=== PATIENT | female | born 1995 | race Caucasian/White ===

== ENCOUNTER 2016-06-18 10:10 | Emergency (ER) | payer OTHER ==
[2016-06-18 11:00] LABS: BASO % 0.1 % (0.0-1.0); EOS # 0.1 K/mm3 (0.0-0.50); EOS % 1.2 % (0.0-3.0); LARGE UNSTAINED CELL # 0.1 K/mm3 (0.0-0.4); LARGE UNSTAINED CELL % 1.1 % (0.0-4.0); LYMPH # 2.3 K/mm3 (1.5-6.5); LYMPH % 20.3 % (24.0-44.0); MEAN CORPUSCULAR HEMOGLOBIN 28.8 pg (27.0-33.0); MEAN CORPUSCULAR HGB CONC 34.1 g/dl (32.0-36.5); MEAN CORPUSCULAR VOLUME 84.5 fl (80.0-96.0); MONO # 0.4 K/mm3 (0.0-0.8); MONO % 3.3 % (0.0-5.0); NEUTROPHILS # 8.2 K/mm3 (1.8-7.7); NEUTROPHILS % 73.9 % (36.0-66.0); PLATELET COUNT, AUTOMATED 231 k/mm3 (150-450); RED CELL DISTRIBUTION WIDTH 12.7 % (11.5-14.5); WHITE BLOOD COUNT 11.1 K/mm3 (4.0-10.0)
[2016-06-18 11:39] LABS: ANION GAP 10 MEQ/L (8-16); BLOOD UREA NITROGEN 6 MG/DL (7-18); CALCIUM LEVEL 8.7 MG/DL (8.5-10.1); CARBON DIOXIDE LEVEL 23 MEQ/L (21-32); CHLORIDE LEVEL 106 MEQ/L (98-107); CREATININE FOR GFR 0.48 MG/DL (0.55-1.02); GLUCOSE, FASTING 73 MG/DL (70-105); HCG, SERUM QUANTITATIVE 21508 MIU/ML; POTASSIUM SERUM 3.8 MEQ/L (3.5-5.1); SODIUM LEVEL 139 MEQ/L (136-145)
--- NOTE | 2016-06-18 12:36 | REP ---
Obstetric sonography: History: Supervision of at 17 weeks, anatomy and viability. Findings: Scanning through the gravid uterus demonstrates a viable single intrauterine gestation in a variable lie. motion is observed and heart rate is recorded at 160 beats per minute. A posterior grade zero placenta is seen without evidence of previa. Amniotic fluid is subjectively normal. Closed cervical length is 3.0 cm, visualized trans vaginally. There is corpus luteum cyst in the maternal left ovary, approximately 1.1 cm in diameter. There has been appropriate interval growth. No extrauterine abnormality is observed. No anomaly is seen. anatomic survey is incomplete due to position and early gestational age. spine, three-vessel cord, abdominal wall cord insertion, diaphragm, ventricular outflow tract and four-chamber heart, lungs and face are less than optimally seen as a result. The following additional anatomic structures are identified and felt to be unremarkable today: cranium, choroid plexus, cavum, cerebellum and posterior fossa, left-sided stomach, kidneys and bladder, upper and lower extremities. Biometry chart: BPD 4.1 cm 18 weeks 4 days Head circumference 15.0 cm 18 weeks 0 days Abdominal circumference 12.4 cm 18 weeks 0 days Femur length 2.8 cm 18 weeks 4 days Humeral length 2.6 cm 18 weeks 0 days HC/AC ratio normal 1.21. Cephalic index normal 0.78. Estimated weight 231 grams, 0 pounds 8 ounces, 72nd percentile for 17 weeks 4 days. Impression: Viable single intrauterine gestation at 18 weeks 2 days by today's composite sonographic criteria. Expected gestational age estimate based on prior sonography 17 weeks 4 days. CHUCK by prior sonography is November 22, 2016. anatomic survey less than complete. Signed by Nba Guzman MD 06/18/2016 03:05 P
[2016-06-18] MEDS ORDERED: ACETAMINOPHEN 325 MG TAB As Ordered ONE (13:45)
[2016-06-18] MEDS ORDERED: NITROFURANTOIN (MACROBID) 100 MG CAP As Ordered ONE (13:52)
--- NOTE | 2016-06-18 14:23 | EDDOCDS ---
Physician Documentation [facility] Name: Chelsey Elizalde Age: 21 yrs Sex: Female : 1995 Arrival Date: 06/18/2016 Time: 10:10 Bed 11 Private MD: Evelia Villa Disposition: 06/18/16 14:01 Discharged to Home/Self Care. Impression: Urinary tract infection, site not specified, state. - Condition is Stable. - Discharge Instructions: Urinary Tract Infection, Second Trimester of , [id number]. - Prescriptions for Macrobid 100 mg Oral Capsule - take 100 milligrams by ORAL route every 12 hours for 7 days; 14 capsule. - Medication Reconciliation, Local Pharmacy Hours form. - Follow up: Hugo Mazariegos, OB; When: 4 - 5 days; Reason: Recheck today's complaints. - Problem is new. - Symptoms have improved. - Notes: You were seen in the ED for discomfort on urination. Bloodwork showed no clear cause of the symptoms. Urine tests was concerning for urinary tract infection. Ultrasound showed live inside the uterus. We have discussed the case with Dr. Mcdonnell of [employer] as well who has recommended you may return home to follow up in the office - please call today to make the appointment. You may take the antibiotics as written. No sexual intercourse, put nothing in the vagina until cleared by OB. Return to the ED for any worsening abdominal pain, fever, vomiting, inability to tolerate oral foods or liquids or any other concerns. Historical: - Allergies: no known allergies; - Home Meds: 1. Diclegis 10-10 mg oral TbEC 2 tabs as needed 2 times a day 2. Vitamin Oral tab 1 tab once daily - PMHx: PCOS; - PSHx: none; - Social history: Smoking status: Patient states former smoker of tobacco. No barriers to communication noted, The patient speaks fluent Slovak, Speaks appropriately for age, Smoking status: . - Family history: Not pertinent. - : The pt / caregiver states he / she is not on anticoagulants. Home medication list is obtained from the patient. - Exposure Risk Screening:: None identified. [employer]: 06/18 10:56 Verified kc3 Vital Signs: 10:24 BP 125 / 76; Pulse 102; Resp 18; Temp 98.2(O); Pulse Ox 98% on R/A; Weight 83.01 kg / rn1 183.01 lbs (R); Height 5 ft. 4 in. (162.56 cm) (R); Pain 5/10; 12:58 BP 107 / 56 (auto/); kc3 13:00 Pulse 90 MON; Pulse Ox 98% ; kc3 14:21 BP 107 / 56; Pulse 78; Resp 18; Temp 97.2(O); Pulse Ox 100% on R/A; kc3 10:24 Body Mass Index 31.41 (83.01 kg, 162.56 cm) rn1 MDM: 10:27 IV Saline Lock ordered. br1 10:27 Heart Tones ordered. br1 10:27 CBC with Diff Ordered. EDMS 10:27 BMP Ordered. EDMS 10:27 Hcg, Serum Quantitative Ordered. EDMS 10:28 Type & Screen Ordered. EDMS 10:31 US OBS SINGEL GEST Ordered. EDMS 10:57 Urinalysis Ordered. EDMS 10:57 Urine Culture Ordered. EDMS 11:48 TRANSVAGINAL US Ordered. EDMS 12:12 CBC with Diff Reviewed. br1 12:12 BMP Reviewed. br1 12:12 Hcg, Serum Quantitative Reviewed. br1 12:12 Type & Screen Reviewed. br1 13:39 Urinalysis Reviewed. br1 13:39 US OBS SINGEL GEST Reviewed. br1 13:40 Acetaminophen Tablet 650 mg PO once ordered. br1 13:46 Fluid Challenge ordered. br1 13:47 Nitrofurantoin 100 mg PO once ordered. br1 Administered Medications: 13:49 Drug: Acetaminophen 650 mg [acetaminophen 325 mg tablet (2 tabs)] Route: PO; kc3 13:55 Drug: Nitrofurantoin 100 mg [nitrofurantoin macrocrystal 50 mg capsule (2 caps)] Route: kc3 PO; Signatures: Dispatcher [employer] EDMS Nabeel Dewitt MD MD br1 Chata Kennedy RN RN kc3 The chart was reviewed and I authenticate all verbal orders and agree with the evaluation and treatment provided.Corrections: (The following items were deleted from the chart) 10:31 10:28 1ST TRIMESTER US+US ordered. EDMS EDMS MTDD
--- NOTE | 2016-06-18 14:23 | EDDOCDS ---
Nurse's Notes [facility] Name: Chelsey Elizalde Age: 21 yrs Sex: Female : 1995 Arrival Date: 06/18/2016 Time: 10:10 Bed 11 Private MD: Evelia Villa Diagnosis: Urinary tract infection, site not specified; state Presentation: 06/18 10:17 Presenting complaint: Patient states: urinary frequency and burning beginning yesterday kc3 with worsening nausea and abdominal distention today sent from [place]. Unable to find heart tones at clinic. Risk factors: the patient reports no vaginal bleeding. Adult Sepsis Screening: The patient does not have new or worsening altered mentation. Patient's respiratory rate is less than 22. Systolic blood pressure is greater than 100. Patient has a qSOFA score of 0- Negative Sepsis Screen. Suicide/Homicide risk assessment- the patient denies having any suicidal and/or homicidal ideations and does not present with any other emotional, behavioral or mental health complaints. Status: The patient is a dependent. Transition of care: patient was received from a primary care office; [place] [facility]. 10:17 Acuity: JIM Level 3 kc3 10:17 Method Of Arrival: Ambulance kc3 Triage Assessment: 10:22 General: Appears in no apparent distress, comfortable, Behavior is appropriate for age, kc3 cooperative. Pain: Location: abdomen. HIV screening NA for this visit Offered previously. The patient is triaged at the bedside. See Assessment in Nurses Notes section of ED record. Neurological: Level of Consciousness is awake, alert, obeys commands, Oriented to person, place, time. Respiratory: Airway is patent Respiratory effort is even, unlabored, Respiratory pattern is regular, symmetrical. GI: Abdomen is distended, Bowel sounds present X 4 quads. Abd is soft Abd is tender to palpation Reports nausea, vomiting. : Reports burning with urination urgency urinary frequency. Derm: Skin is pink, warm & dry. Musculoskeletal: Circulation, motion, and sensation intact. PHYS THER: 10:56 Verified kc3 Historical: - Allergies: no known allergies; - Home Meds: 1. Diclegis 10-10 mg oral TbEC 2 tabs as needed 2 times a day 2. Vitamin Oral tab 1 tab once daily - PMHx: PCOS; - PSHx: none; - Social history: Smoking status: Patient states former smoker of tobacco. No barriers to communication noted, The patient speaks fluent Croatian, Speaks appropriately for age, Smoking status: . - Family history: Not pertinent. - : The pt / caregiver states he / she is not on anticoagulants. Home medication list is obtained from the patient. - Exposure Risk Screening:: None identified. Screenin:56 Screening information is obtained from the patient. Fall risk: No risks identified. kc3 Assistance ADL's: requires no assistance with activities of daily living. Abuse/DV Screen: The patient / caregiver reports he/she is: not in a situation that causes fear, pain or injury. Nutritional screening: No deficits noted. Advance Directives: Currently, there is no health care proxy. home support is adequate. Assessment: 10:55 General: See triage assessment for initial assessment. . kc3 11:45 General: Appears in no apparent distress, comfortable, Behavior is appropriate for age, kc3 cooperative. Respiratory: Airway is patent Respiratory effort is even, unlabored. GI: Abdomen is distended, Bowel sounds present X 4 quads. Abd is soft Abd is tender to palpation. Derm: Skin is pink, warm & dry. 12:48 General: Appears in no apparent distress, comfortable, Behavior is appropriate for age, kc3 cooperative. Respiratory: Airway is patent Respiratory effort is even, unlabored. Derm: Skin is pink, warm & dry. 13:14 General: Appears in no apparent distress, comfortable, Behavior is appropriate for age, kc3 cooperative. Pain: Denies pain. Neurological: Level of Consciousness is awake, alert, obeys commands. Respiratory: Airway is patent Respiratory effort is even, unlabored. GI: Denies nausea. Derm: Skin is pink, warm & dry. 14:21 General: Appears in no apparent distress, comfortable, Behavior is appropriate for age, kc3 cooperative. Pain: Denies pain. Neurological: Level of Consciousness is awake, alert, obeys commands. Respiratory: Airway is patent Respiratory effort is even, unlabored. Derm: Skin is pink, warm & dry. Vital Signs: 10:24 BP 125 / 76; Pulse 102; Resp 18; Temp 98.2(O); Pulse Ox 98% on R/A; Weight 83.01 kg rn1 (R); Height 5 ft. 4 in. (162.56 cm) (R); Pain 5/10; 12:58 BP 107 / 56 (auto/); kc3 13:00 Pulse 90 MON; Pulse Ox 98% ; kc3 14:21 BP 107 / 56; Pulse 78; Resp 18; Temp 97.2(O); Pulse Ox 100% on R/A; kc3 10:24 Body Mass Index 31.41 (83.01 kg, 162.56 cm) rn1 Vitals: 10:56 Heart Tones 154BPM. kc3 10:56 Log In Time N/A - ambulance arrival. kc3 ED Course: 10:13 Patient visited by Addie Bowman. mm15 10:13 Evelia Villa is Private Physician. mm15 10:13 Chata Kennedy,KUMAR is Primary Nurse. kc3 10:13 Patient moved to Waiting mm15 10:13 Patient moved to 11 kc3 10:21 Triage Initiated kc3 10:56 The patient / caregiver is instructed regarding the plan of care and ED course. kc3 10:56 Inserted saline lock: 20 gauge in left antecubital area and blood collected. The kc3 patient tolerated the procedure well. Labs drawn. (by ED staff). Sent per order to lab. 10:58 Patient visited by Chata Kennedy RN. kc3 10:58 Type & Screen Sent. kc3 11:18 Nabeel Dewitt MD is Attending Physician. br1 11:18 Patient moved to Ultrasound hgl 11:59 Patient visited by Sully Griffin PCA. rs6 11:59 Urine Culture Sent. rs6 11:59 Urinalysis Sent. rs6 11:59 Urine collected. Clean catch specimen. Urine specimen sent to lab. rs6 12:04 Patient moved to 11 hgl 12:12 Patient visited by Nabeel Dewitt MD. br1 12:47 Patient visited by Chata Kennedy,KUMAR. kc3 12:49 Patient visited by Chata Kennedy RN. kc3 12:58 US OBS KARENA PRATT Returned. EDMS 13:31 Patient visited by Chata Kennedy,KUMAR. kc3 13:56 Diet: Patient given water. Tolerated well. kc3 13:57 Patient visited by Chata Kennedy RN. kc3 14:00 [place], OB is Referral Physician. br1 14:22 Discontinued IV lock intact, bleeding controlled, pressure dressing applied, No kc3 redness/swelling at site. No procedures done that require assistance. Administered Medications: 13:49 Drug: Acetaminophen 650 mg [acetaminophen 325 mg tablet (2 tabs)] Route: PO; kc3 13:55 Drug: Nitrofurantoin 100 mg [nitrofurantoin macrocrystal 50 mg capsule (2 caps)] Route: kc3 PO; Order Results: Lab Order: CBC with Diff; SPEC'M 06/18/16 10:53 Test: WHITE BLOOD COUNT; Value: 11.1; Range: 4.0-10.0; Abnormal: Above high normal; Units: K/mm3; Status: F Test: RED BLOOD COUNT; Value: 4.02; Range: 4.00-5.40; Units: M/mm3; Status: F Test: HEMOGLOBIN; Value: 11.6; Range: 12.0-16.0; Abnormal: Below low normal; Units: g/dl; Status: F Test: HEMATOCRIT; Value: 34.0; Range: 36.0-47.0; Abnormal: Below low normal; Units: %; Status: F Test: MEAN CORPUSCULAR VOLUME; Value: 84.5; Range: 80.0-96.0; Units: fl; Status: F Test: MEAN CORPUSCULAR HEMOGLOBIN; Value: 28.8; Range: 27.0-33.0; Units: pg; Status: F Test: MEAN CORPUSCULAR HGB CONC; Value: 34.1; Range: 32.0-36.5; Units: g/dl; Status: F Test: RED CELL DISTRIBUTION WIDTH; Value: 12.7; Range: 11.5-14.5; Units: %; Status: F Test: PLATELET COUNT, AUTOMATED; Value: 231; Range: 150-450; Units: k/mm3; Status: F Test: NEUTROPHILS %; Value: 73.9; Range: 36.0-66.0; Abnormal: Above high normal; Units: %; Status: F Test: LYMPH %; Value: 20.3; Range: 24.0-44.0; Abnormal: Below low normal; Units: %; Status: F Test: MONO %; Value: 3.3; Range: 0.0-5.0; Units: %; Status: F Test: EOS %; Value: 1.2; Range: 0.0-3.0; Units: %; Status: F Test: BASO %; Value: 0.1; Range: 0.0-1.0; Units: %; Status: F Test: LARGE UNSTAINED CELL %; Value: 1.1; Range: 0.0-4.0; Units: %; Status: F Test: NEUTROPHILS #; Value: 8.2; Range: 1.8-7.7; Abnormal: Above high normal; Units: K/mm3; Status: F Test: LYMPH #; Value: 2.3; Range: 1.5-6.5; Units: K/mm3; Status: F Test: MONO #; Value: 0.4; Range: 0.0-0.8; Units: K/mm3; Status: F Test: EOS #; Value: 0.1; Range: 0.0-0.50; Units: K/mm3; Status: F Test: BASO #; Value: 0.0; Range: 0.0-0.2; Units: K/mm3; Status: F Test: LARGE UNSTAINED CELL #; Value: 0.1; Range: 0.0-0.4; Units: K/mm3; Status: F Lab Order: [facility]; SPEC'M 06/18/16 10:53 Test: GLUCOSE, FASTING; Value: 73; Range: 70-105; Units: MG/DL; Status: F Test: BLOOD UREA NITROGEN; Value: 6; Range: 7-18; Abnormal: Below low normal; Units: MG/DL; Status: F Test: CREATININE FOR GFR; Value: 0.48; Range: 0.55-1.02; Abnormal: Below low normal; Units: MG/DL; Status: F Test: SODIUM LEVEL; Value: 139; Range: 136-145; Units: MEQ/L; Status: F Test: POTASSIUM SERUM; Value: 3.8; Range: 3.5-5.1; Units: MEQ/L; Status: F Test: CHLORIDE LEVEL; Value: 106; Range: 98-107; Units: MEQ/L; Status: F Test: CARBON DIOXIDE LEVEL; Value: 23; Range: 21-32; Units: MEQ/L; Status: F Test: ANION GAP; Value: 10; Range: 8-16; Units: MEQ/L; Status: F Test: CALCIUM LEVEL; Value: 8.7; Range: 8.5-10.1; Units: MG/DL; Status: F Lab Order: Hcg, Serum Quantitative; [facility] 06/18/16 10:53 Test: HCG, SERUM QUANTITATIVE; Value: [id number]; Units: MIU/ML; Status: F Test Note: ; GESTATIONAL AGE APPROXIMATE HCG RANGE (MIU/ML) 0.2-1 WEEK 5-50 1-2 WEEKS 50-500 2-3 WEEKS 100-5,000 3-4 WEEKS 500-10,000 4-5 WEEKS 1,000-50,000 5-6 WEEKS 10,000-100,000 6-8 WEEKS 15,000-200,000 2-3 MONTHS 10,000-100,000 NON FEMALES LESS THAN 3.0 Patient samples may contain human heterophilic antibodies that could react with immunoassays to give falsely elevated or depressed results. This assay has been designed to minimize interference from heterophilic antibodies. Elevated hCG levels have also been associated with trophoblastic disease and nontrophoblastic neoplasms. The possibility of having these diseases should be considered before a diagnosis of is made. This test is not intended for use as a surrogate marker for aiding in the diagnosis or monitoring the treatment of cancer patients. Siemens Harrod methodology. Lab Order: Type & Screen; [facility] 06/18/16 10:53 Test: BLOOD TYPE; Value: A POS; Status: F Test: AB SCREEN (INDIRECT SHI)VIS; Value: NEGATIVE; Status: F Lab Order: Urinalysis; [facility] 06/18/16 11:59 Test: APPEARANCE, URINE; Value: HAZY; Range: CLEAR; Status: F Test: COLOR, URINE; Value: YELLOW; Range: YELLOW; Status: F Test: PH,URINE; Value: 6.0; Range: 5.0-9.0; Units: UNITS; Status: F Test: SPECIFIC GRAVITY URINE AUTO; Value: 1.009; Range: 1.002-1.035; Status: F Test: PROTEIN, URINE AUTO; Value: NEGATIVE; Range: NEGATIVE; Units: mg/dL; Status: F Test: GLUCOSE, URINE (UA) AUTO; Value: NEGATIVE; Range: NEGATIVE; Units: mg/dL; Status: F Test: KETONE, URINE AUTO; Value: NEGATIVE; Range: NEGATIVE; Units: mg/dL; Status: F Test: UROBILINOGEN, URINE AUTO; Value: 0.2; Range: 0.0-2.0; Units: mg/dL; Status: F Test: BILIRUBIN, URINE AUTO; Value: NEGATIVE; Range: NEGATIVE; Status: F Test: NITRITE, URINE AUTO; Value: NEGATIVE; Range: NEGATIVE; Status: F Test: LEUKOCYTE ESTERASE, URINE AUTO; Value: 3+; Range: NEGATIVE; Abnormal: Above high normal; Status: F Test: BLOOD, URINE BLOOD; Value: 1+; Range: NEGATIVE; Abnormal: Above high normal; Status: F Test: WBC, URINE AUTO; Value: 71; Range: 0-3; Abnormal: Above high normal; Units: /HPF; Status: F Test: RBC, URINE AUTO; Value: 2; Range: 0-3; Units: /HPF; Status: F Test: BACTERIA, URINE AUTO; Value: 1+; Range: NEGATIVE; Abnormal: Above high normal; Status: F Test: SQUAMOUS EPITHELIAL CELL UR AU; Value: 3; Range: 0-6; Units: /HPF; Status: F Test: MUCUS, URINE; Value: SMALL; Range: NEGATIVE; Status: F Test: HYALINE CAST, URINE AUTO; Value: 0; Range: 0-1; Units: /LPF; Status: F Radiology Order: US OBS SINGEL GEST Test: US OBS SINGEL GEST REASON FOR EXAMINATION: abd pain preg eval for FHR; Obstetric sonography:; ; History: Supervision of at 17 weeks, anatomy and viability.; ; Findings: Scanning through the gravid uterus demonstrates a viable single; intrauterine gestation in a variable lie. motion is observed and; heart rate is recorded at 160 beats per minute. A posterior grade zero placenta; is seen without evidence of previa. Amniotic fluid is subjectively normal.; Closed cervical length is 3.0 cm, visualized transvaginally. There is corpus; luteum cyst in the maternal left ovary, approximately 1.1 cm in diameter. There; has been appropriate interval growth. No extrauterine abnormality is observed.; ; No anomaly is seen. anatomic survey is incomplete due to ; position and early gestational age. spine, three-vessel cord, abdominal; wall cord insertion, diaphragm, ventricular outflow tract and four-chamber heart,; lungs and face are less than optimally seen as a result. The following; additional anatomic structures are identified and felt to be unremarkable; today: cranium, choroid plexus, cavum, cerebellum and posterior fossa,; left-sided stomach, kidneys and bladder, upper and lower extremities.; ; Biometry chart:; BPD 4.1 cm 18 weeks 4 days; Head circumference 15.0 cm 18 weeks 0 days; Abdominal circumference 12.4 cm 18 weeks 0 days; Femur length 2.8 cm 18 weeks 4 days; Humeral length 2.6 cm 18 weeks 0 days; ; HC/AC ratio normal 1.21. Cephalic index normal 0.78. Estimated weight 231; grams, 0 pounds 8 ounces, 72nd percentile for 17 weeks 4 days.; ; Impression:; Viable single intrauterine gestation at 18 weeks 2 days by today's composite; sonographic criteria. Expected gestational age estimate based on prior; sonography 17 weeks 4 days. CHUCK by prior sonography is November 22, 2016. ; anatomic survey less than complete.; ; ; ; ; Unreviewed; Outcome: 13:15 Ultrasound Study completed. kc3 14:01 Discharge ordered by Provider. br1 14:22 Discharge Assessment: Patient awake, alert and oriented x 3. No cognitive and/or kc3 functional deficits noted. Patient verbalized understanding of disposition instructions. patient administered narcotics - no. The following High Risk Discharge criteria are identified: None. Discharged to home ambulatory. Condition: stable. Discharge instructions given to patient, Instructed on discharge instructions, follow up and referral plans. medication usage, Demonstrated understanding of instructions, medications, Pt was receptive of discharge instructions/ teaching. Prescriptions given X 1. Property :Personal belongings accompany Pt. 14:22 Patient left the ED. kc3 Signatures: Dispatcher [employer] EDMS Nabeel Dewitt MD MD br1 Navin Mason Marlynn mm15 Sully Griffin, FASHION DIRECTOR FASHION DIRECTOR rs6 Antonio De Luna rn1 Chata Kennedy RN RN kc3 MTDD
--- NOTE | 2016-06-20 15:23 | EDDOCDS ---
Physician Documentation [facility] Name: Chelsey Elizalde Age: 21 yrs Sex: Female : 1995 Arrival Date: 06/18/2016 Time: 10:10 Bed 11 Private MD: Evelia Villa Disposition: 06/18/16 14:01 Discharged to Home/Self Care. Impression: Urinary tract infection, site not specified, state. - Condition is Stable. - Discharge Instructions: Urinary Tract Infection, Second Trimester of , [id number]. - Prescriptions for Macrobid 100 mg Oral Capsule - take 100 milligrams by ORAL route every 12 hours for 7 days; 14 capsule. - Medication Reconciliation, Local Pharmacy Hours form. - Follow up: Hugo Mazariegos, OB; When: 4 - 5 days; Reason: Recheck today's complaints. - Problem is new. - Symptoms have improved. - Notes: You were seen in the ED for discomfort on urination. Bloodwork showed no clear cause of the symptoms. Urine tests was concerning for urinary tract infection. Ultrasound showed live inside the uterus. We have discussed the case with Dr. Mcdonnell of [employer] as well who has recommended you may return home to follow up in the office - please call today to make the appointment. You may take the antibiotics as written. No sexual intercourse, put nothing in the vagina until cleared by OB. Return to the ED for any worsening abdominal pain, fever, vomiting, inability to tolerate oral foods or liquids or any other concerns. Historical: - Allergies: no known allergies; - Home Meds: 1. Diclegis 10-10 mg oral TbEC 2 tabs as needed 2 times a day 2. Vitamin Oral tab 1 tab once daily - PMHx: PCOS; - PSHx: none; - Social history: Smoking status: Patient states former smoker of tobacco. No barriers to communication noted, The patient speaks fluent Martiniquais, Speaks appropriately for age, Smoking status: . - Family history: Not pertinent. - : The pt / caregiver states he / she is not on anticoagulants. Home medication list is obtained from the patient. - Exposure Risk Screening:: None identified. [employer]: 06/18 10:56 Verified kc3 Vital Signs: 10:24 BP 125 / 76; Pulse 102; Resp 18; Temp 98.2(O); Pulse Ox 98% on R/A; Weight 83.01 kg / rn1 183.01 lbs (R); Height 5 ft. 4 in. (162.56 cm) (R); Pain 5/10; 12:58 BP 107 / 56 (auto/); kc3 13:00 Pulse 90 MON; Pulse Ox 98% ; kc3 14:21 BP 107 / 56; Pulse 78; Resp 18; Temp 97.2(O); Pulse Ox 100% on R/A; kc3 10:24 Body Mass Index 31.41 (83.01 kg, 162.56 cm) rn1 MDM: 10:27 IV Saline Lock ordered. br1 10:27 Heart Tones ordered. br1 10:27 CBC with Diff Ordered. EDMS 10:27 BMP Ordered. EDMS 10:27 Hcg, Serum Quantitative Ordered. EDMS 10:28 Type & Screen Ordered. EDMS 10:31 US OBS SINGEL GEST Ordered. EDMS 10:57 Urinalysis Ordered. EDMS 10:57 Urine Culture Ordered. EDMS 11:48 TRANSVAGINAL US Ordered. EDMS 12:12 CBC with Diff Reviewed. br1 12:12 BMP Reviewed. br1 12:12 Hcg, Serum Quantitative Reviewed. br1 12:12 Type & Screen Reviewed. br1 13:39 Urinalysis Reviewed. br1 13:39 US OBS SINGEL GEST Reviewed. br1 13:40 Acetaminophen Tablet 650 mg PO once ordered. br1 13:46 Fluid Challenge ordered. br1 13:47 Nitrofurantoin 100 mg PO once ordered. br1 14:26 Financial registration complete. lg 15:18 [facility] [place] was scanned into [employer] and attached to record. lg 06/19 13:22 T-Sheet-- Draft Copy was scanned into [employer] and attached to record. gb 13:22 Radiology Report was scanned into [employer] and attached to record. gb 13:23 PCR was scanned into [employer] and attached to record. gb Administered Medications: 06/18 13:49 Drug: Acetaminophen 650 mg [acetaminophen 325 mg tablet (2 tabs)] Route: PO; kc3 13:55 Drug: Nitrofurantoin 100 mg [nitrofurantoin macrocrystal 50 mg capsule (2 caps)] Route: kc3 PO; Signatures: Dispatcher [employer] EDMS Naila Patel, Reg Reg gb Floresita Aguero, Reg Reg lg Nabeel Dewitt MD MD br1 Chata KennedyRN RN kc3 The chart was reviewed and I authenticate all verbal orders and agree with the evaluation and treatment provided.Corrections: (The following items were deleted from the chart) 10:31 10:28 1ST TRIMESTER US+US ordered. EDMS EDMS Attachments: 15:18 [facility] [place] Agreement lg 06/19 13:22 T-Sheet-- Draft Copy gb Chart Complete MTDD
--- NOTE | 2016-06-20 15:23 | EDDOCDS ---
Physician Documentation [facility] Name: Chelsey Elizalde Age: 21 yrs Sex: Female : 1995 Arrival Date: 06/18/2016 Time: 10:10 Bed 11 Private MD: Evelia Villa Disposition: 06/18/16 14:01 Discharged to Home/Self Care. Impression: Urinary tract infection, site not specified, state. - Condition is Stable. - Discharge Instructions: Urinary Tract Infection, Second Trimester of , [id number]. - Prescriptions for Macrobid 100 mg Oral Capsule - take 100 milligrams by ORAL route every 12 hours for 7 days; 14 capsule. - Medication Reconciliation, Local Pharmacy Hours form. - Follow up: Hugo Mazariegos, OB; When: 4 - 5 days; Reason: Recheck today's complaints. - Problem is new. - Symptoms have improved. - Notes: You were seen in the ED for discomfort on urination. Bloodwork showed no clear cause of the symptoms. Urine tests was concerning for urinary tract infection. Ultrasound showed live inside the uterus. We have discussed the case with Dr. Mcdonnell of [employer] as well who has recommended you may return home to follow up in the office - please call today to make the appointment. You may take the antibiotics as written. No sexual intercourse, put nothing in the vagina until cleared by OB. Return to the ED for any worsening abdominal pain, fever, vomiting, inability to tolerate oral foods or liquids or any other concerns. Historical: - Allergies: no known allergies; - Home Meds: 1. Diclegis 10-10 mg oral TbEC 2 tabs as needed 2 times a day 2. Vitamin Oral tab 1 tab once daily - PMHx: PCOS; - PSHx: none; - Social history: Smoking status: Patient states former smoker of tobacco. No barriers to communication noted, The patient speaks fluent Uruguayan, Speaks appropriately for age, Smoking status: . - Family history: Not pertinent. - : The pt / caregiver states he / she is not on anticoagulants. Home medication list is obtained from the patient. - Exposure Risk Screening:: None identified. [employer]: 06/18 10:56 Verified kc3 Vital Signs: 10:24 BP 125 / 76; Pulse 102; Resp 18; Temp 98.2(O); Pulse Ox 98% on R/A; Weight 83.01 kg / rn1 183.01 lbs (R); Height 5 ft. 4 in. (162.56 cm) (R); Pain 5/10; 12:58 BP 107 / 56 (auto/); kc3 13:00 Pulse 90 MON; Pulse Ox 98% ; kc3 14:21 BP 107 / 56; Pulse 78; Resp 18; Temp 97.2(O); Pulse Ox 100% on R/A; kc3 10:24 Body Mass Index 31.41 (83.01 kg, 162.56 cm) rn1 MDM: 10:27 IV Saline Lock ordered. br1 10:27 Heart Tones ordered. br1 10:27 CBC with Diff Ordered. EDMS 10:27 BMP Ordered. EDMS 10:27 Hcg, Serum Quantitative Ordered. EDMS 10:28 Type & Screen Ordered. EDMS 10:31 US OBS SINGEL GEST Ordered. EDMS 10:57 Urinalysis Ordered. EDMS 10:57 Urine Culture Ordered. EDMS 11:48 TRANSVAGINAL US Ordered. EDMS 12:12 CBC with Diff Reviewed. br1 12:12 BMP Reviewed. br1 12:12 Hcg, Serum Quantitative Reviewed. br1 12:12 Type & Screen Reviewed. br1 13:39 Urinalysis Reviewed. br1 13:39 US OBS SINGEL GEST Reviewed. br1 13:40 Acetaminophen Tablet 650 mg PO once ordered. br1 13:46 Fluid Challenge ordered. br1 13:47 Nitrofurantoin 100 mg PO once ordered. br1 14:26 Financial registration complete. lg 15:18 [facility] Payment Agreement was scanned into [employer] and attached to record. lg 06/19 13:22 T-Sheet-- Draft Copy was scanned into [employer] and attached to record. gb 13:22 Radiology Report was scanned into [employer] and attached to record. gb 13:23 PCR was scanned into [employer] and attached to record. gb Administered Medications: 06/18 13:49 Drug: Acetaminophen 650 mg [acetaminophen 325 mg tablet (2 tabs)] Route: PO; kc3 13:55 Drug: Nitrofurantoin 100 mg [nitrofurantoin macrocrystal 50 mg capsule (2 caps)] Route: kc3 PO; Signatures: Dispatcher [employer] EDMS Naila Patel, Reg Reg gb Floresita Aguero, Reg Reg lg Nabeel Dewitt MD MD br1 Chata KennedyRN RN kc3 The chart was reviewed and I authenticate all verbal orders and agree with the evaluation and treatment provided.Corrections: (The following items were deleted from the chart) 10:31 10:28 1ST TRIMESTER US+US ordered. EDMS EDMS Attachments: 15:18 [facility] Payment Agreement lg 06/19 13:22 T-Sheet-- Draft Copy gb Chart Complete MTDD
--- NOTE | 2016-06-20 15:23 | EDDOCDS ---
Nurse's Notes [facility] Name: Chelsey Elizalde Age: 21 yrs Sex: Female : 1995 Arrival Date: 06/18/2016 Time: 10:10 Bed 11 Private MD: Evelia Villa Diagnosis: Urinary tract infection, site not specified; state Presentation: 06/18 10:17 Presenting complaint: Patient states: urinary frequency and burning beginning yesterday kc3 with worsening nausea and abdominal distention today sent from [facility]. Unable to find heart tones at clinic. Risk factors: the patient reports no vaginal bleeding. Adult Sepsis Screening: The patient does not have new or worsening altered mentation. Patient's respiratory rate is less than 22. Systolic blood pressure is greater than 100. Patient has a qSOFA score of 0- Negative Sepsis Screen. Suicide/Homicide risk assessment- the patient denies having any suicidal and/or homicidal ideations and does not present with any other emotional, behavioral or mental health complaints. Status: The patient is a dependent. Transition of care: patient was received from a primary care office; [facility] Director Of Cardiology Service Line clinic. 10:17 Acuity: JIM Level 3 kc3 10:17 Method Of Arrival: Ambulance kc3 Triage Assessment: 10:22 General: Appears in no apparent distress, comfortable, Behavior is appropriate for age, kc3 cooperative. Pain: Location: abdomen. HIV screening NA for this visit Offered previously. The patient is triaged at the bedside. See Assessment in Nurses Notes section of ED record. Neurological: Level of Consciousness is awake, alert, obeys commands, Oriented to person, place, time. Respiratory: Airway is patent Respiratory effort is even, unlabored, Respiratory pattern is regular, symmetrical. GI: Abdomen is distended, Bowel sounds present X 4 quads. Abd is soft Abd is tender to palpation Reports nausea, vomiting. : Reports burning with urination urgency urinary frequency. Derm: Skin is pink, warm & dry. Musculoskeletal: Circulation, motion, and sensation intact. CERTIFIED INDUSTRIAL HYGIENIST: 10:56 Verified kc3 Historical: - Allergies: no known allergies; - Home Meds: 1. Diclegis 10-10 mg oral TbEC 2 tabs as needed 2 times a day 2. Vitamin Oral tab 1 tab once daily - PMHx: PCOS; - PSHx: none; - Social history: Smoking status: Patient states former smoker of tobacco. No barriers to communication noted, The patient speaks fluent Luxembourgish, Speaks appropriately for age, Smoking status: . - Family history: Not pertinent. - : The pt / caregiver states he / she is not on anticoagulants. Home medication list is obtained from the patient. - Exposure Risk Screening:: None identified. Screenin:56 Screening information is obtained from the patient. Fall risk: No risks identified. kc3 Assistance ADL's: requires no assistance with activities of daily living. Abuse/DV Screen: The patient / caregiver reports he/she is: not in a situation that causes fear, pain or injury. Nutritional screening: No deficits noted. Advance Directives: Currently, there is no health care proxy. home support is adequate. Assessment: 10:55 General: See triage assessment for initial assessment. . kc3 11:45 General: Appears in no apparent distress, comfortable, Behavior is appropriate for age, kc3 cooperative. Respiratory: Airway is patent Respiratory effort is even, unlabored. GI: Abdomen is distended, Bowel sounds present X 4 quads. Abd is soft Abd is tender to palpation. Derm: Skin is pink, warm & dry. 12:48 General: Appears in no apparent distress, comfortable, Behavior is appropriate for age, kc3 cooperative. Respiratory: Airway is patent Respiratory effort is even, unlabored. Derm: Skin is pink, warm & dry. 13:14 General: Appears in no apparent distress, comfortable, Behavior is appropriate for age, kc3 cooperative. Pain: Denies pain. Neurological: Level of Consciousness is awake, alert, obeys commands. Respiratory: Airway is patent Respiratory effort is even, unlabored. GI: Denies nausea. Derm: Skin is pink, warm & dry. 14:21 General: Appears in no apparent distress, comfortable, Behavior is appropriate for age, kc3 cooperative. Pain: Denies pain. Neurological: Level of Consciousness is awake, alert, obeys commands. Respiratory: Airway is patent Respiratory effort is even, unlabored. Derm: Skin is pink, warm & dry. Vital Signs: 10:24 BP 125 / 76; Pulse 102; Resp 18; Temp 98.2(O); Pulse Ox 98% on R/A; Weight 83.01 kg rn1 (R); Height 5 ft. 4 in. (162.56 cm) (R); Pain 5/10; 12:58 BP 107 / 56 (auto/); kc3 13:00 Pulse 90 MON; Pulse Ox 98% ; kc3 14:21 BP 107 / 56; Pulse 78; Resp 18; Temp 97.2(O); Pulse Ox 100% on R/A; kc3 10:24 Body Mass Index 31.41 (83.01 kg, 162.56 cm) rn1 Vitals: 10:56 Heart Tones 154BPM. kc3 10:56 Log In Time N/A - ambulance arrival. kc3 ED Course: 10:13 Patient visited by Addie Bowman. mm15 10:13 Evelia Villa is Private Physician. mm15 10:13 Chata Kennedy,KUMAR is Primary Nurse. kc3 10:13 Patient moved to Waiting mm15 10:13 Patient moved to 11 kc3 10:21 Triage Initiated kc3 10:56 The patient / caregiver is instructed regarding the plan of care and ED course. kc3 10:56 Inserted saline lock: 20 gauge in left antecubital area and blood collected. The kc3 patient tolerated the procedure well. Labs drawn. (by ED staff). Sent per order to lab. 10:58 Patient visited by Chata Kennedy RN. kc3 10:58 Type & Screen Sent. kc3 11:18 Nabeel Dewitt MD is Attending Physician. br1 11:18 Patient moved to Ultrasound hgl 11:59 Patient visited by Sully Griffin PCA. rs6 11:59 Urine Culture Sent. rs6 11:59 Urinalysis Sent. rs6 11:59 Urine collected. Clean catch specimen. Urine specimen sent to lab. rs6 12:04 Patient moved to 11 hgl 12:12 Patient visited by Nabeel Dewitt MD. br1 12:47 Patient visited by Chata Kennedy,KUMAR. kc3 12:49 Patient visited by Chata Kennedy RN. kc3 12:58 US OBS KARENA PRATT Returned. EDMS 13:31 Patient visited by Chata Kennedy,KUMAR. kc3 13:56 Diet: Patient given water. Tolerated well. kc3 13:57 Patient visited by Chata Kennedy RN. kc3 14:00 [place], OB is Referral Physician. br1 14:22 Discontinued IV lock intact, bleeding controlled, pressure dressing applied, No kc3 redness/swelling at site. No procedures done that require assistance. 15:18 [facility] [place] was scanned into [employer] and attached to record. lg 15:32 US OBS KARENA PRATT Returned. EDMS 06/19 13:22 T-Sheet-- Draft Copy was scanned into [employer] and attached to record. gb 13:22 Radiology Report was scanned into [employer] and attached to record. gb 13:23 PCR was scanned into [employer] and attached to record. gb 06/20 09:20 Patient visited by Lonnie Abraham RN. bcj Administered Medications: 06/18 13:49 Drug: Acetaminophen 650 mg [acetaminophen 325 mg tablet (2 tabs)] Route: PO; kc3 13:55 Drug: Nitrofurantoin 100 mg [nitrofurantoin macrocrystal 50 mg capsule (2 caps)] Route: kc3 PO; Order Results: Lab Order: CBC with Diff; SPEC'M 06/18/16 10:53 Test: WHITE BLOOD COUNT; Value: 11.1; Range: 4.0-10.0; Abnormal: Above high normal; Units: K/mm3; Status: F Test: RED BLOOD COUNT; Value: 4.02; Range: 4.00-5.40; Units: M/mm3; Status: F Test: HEMOGLOBIN; Value: 11.6; Range: 12.0-16.0; Abnormal: Below low normal; Units: g/dl; Status: F Test: HEMATOCRIT; Value: 34.0; Range: 36.0-47.0; Abnormal: Below low normal; Units: %; Status: F Test: MEAN CORPUSCULAR VOLUME; Value: 84.5; Range: 80.0-96.0; Units: fl; Status: F Test: MEAN CORPUSCULAR HEMOGLOBIN; Value: 28.8; Range: 27.0-33.0; Units: pg; Status: F Test: MEAN CORPUSCULAR HGB CONC; Value: 34.1; Range: 32.0-36.5; Units: g/dl; Status: F Test: RED CELL DISTRIBUTION WIDTH; Value: 12.7; Range: 11.5-14.5; Units: %; Status: F Test: PLATELET COUNT, AUTOMATED; Value: 231; Range: 150-450; Units: k/mm3; Status: F Test: NEUTROPHILS %; Value: 73.9; Range: 36.0-66.0; Abnormal: Above high normal; Units: %; Status: F Test: LYMPH %; Value: 20.3; Range: 24.0-44.0; Abnormal: Below low normal; Units: %; Status: F Test: MONO %; Value: 3.3; Range: 0.0-5.0; Units: %; Status: F Test: EOS %; Value: 1.2; Range: 0.0-3.0; Units: %; Status: F Test: BASO %; Value: 0.1; Range: 0.0-1.0; Units: %; Status: F Test: LARGE UNSTAINED CELL %; Value: 1.1; Range: 0.0-4.0; Units: %; Status: F Test: NEUTROPHILS #; Value: 8.2; Range: 1.8-7.7; Abnormal: Above high normal; Units: K/mm3; Status: F Test: LYMPH #; Value: 2.3; Range: 1.5-6.5; Units: K/mm3; Status: F Test: MONO #; Value: 0.4; Range: 0.0-0.8; Units: K/mm3; Status: F Test: EOS #; Value: 0.1; Range: 0.0-0.50; Units: K/mm3; Status: F Test: BASO #; Value: 0.0; Range: 0.0-0.2; Units: K/mm3; Status: F Test: LARGE UNSTAINED CELL #; Value: 0.1; Range: 0.0-0.4; Units: K/mm3; Status: F Lab Order: [facility]; SPEC'M 06/18/16 10:53 Test: GLUCOSE, FASTING; Value: 73; Range: 70-105; Units: MG/DL; Status: F Test: BLOOD UREA NITROGEN; Value: 6; Range: 7-18; Abnormal: Below low normal; Units: MG/DL; Status: F Test: CREATININE FOR GFR; Value: 0.48; Range: 0.55-1.02; Abnormal: Below low normal; Units: MG/DL; Status: F Test: SODIUM LEVEL; Value: 139; Range: 136-145; Units: MEQ/L; Status: F Test: POTASSIUM SERUM; Value: 3.8; Range: 3.5-5.1; Units: MEQ/L; Status: F Test: CHLORIDE LEVEL; Value: 106; Range: 98-107; Units: MEQ/L; Status: F Test: CARBON DIOXIDE LEVEL; Value: 23; Range: 21-32; Units: MEQ/L; Status: F Test: ANION GAP; Value: 10; Range: 8-16; Units: MEQ/L; Status: F Test: CALCIUM LEVEL; Value: 8.7; Range: 8.5-10.1; Units: MG/DL; Status: F Lab Order: Hcg, Serum Quantitative; 06/18/16 10:53 Test: HCG, SERUM QUANTITATIVE; Value: [id number]; Units: MIU/ML; Status: F Test Note: ; GESTATIONAL AGE APPROXIMATE HCG RANGE (MIU/ML) 0.2-1 WEEK 5-50 1-2 WEEKS 50-500 2-3 WEEKS 100-5,000 3-4 WEEKS 500-10,000 4-5 WEEKS 1,000-50,000 5-6 WEEKS 10,000-100,000 6-8 WEEKS 15,000-200,000 2-3 MONTHS 10,000-100,000 NON FEMALES LESS THAN 3.0 Patient samples may contain human heterophilic antibodies that could react with immunoassays to give falsely elevated or depressed results. This assay has been designed to minimize interference from heterophilic antibodies. Elevated hCG levels have also been associated with trophoblastic disease and nontrophoblastic neoplasms. The possibility of having these diseases should be considered before a diagnosis of is made. This test is not intended for use as a surrogate marker for aiding in the diagnosis or monitoring the treatment of cancer patients. Siemens Qewz methodology. Lab Order: Type & Screen; 06/18/16 10:53 Test: BLOOD TYPE; Value: A POS; Status: F Test: AB SCREEN (INDIRECT SHI)VIS; Value: NEGATIVE; Status: F Lab Order: Urinalysis; 06/18/16 11:59 Test: APPEARANCE, URINE; Value: HAZY; Range: CLEAR; Status: F Test: COLOR, URINE; Value: YELLOW; Range: YELLOW; Status: F Test: PH,URINE; Value: 6.0; Range: 5.0-9.0; Units: UNITS; Status: F Test: SPECIFIC GRAVITY URINE AUTO; Value: 1.009; Range: 1.002-1.035; Status: F Test: PROTEIN, URINE AUTO; Value: NEGATIVE; Range: NEGATIVE; Units: mg/dL; Status: F Test: GLUCOSE, URINE (UA) AUTO; Value: NEGATIVE; Range: NEGATIVE; Units: mg/dL; Status: F Test: KETONE, URINE AUTO; Value: NEGATIVE; Range: NEGATIVE; Units: mg/dL; Status: F Test: UROBILINOGEN, URINE AUTO; Value: 0.2; Range: 0.0-2.0; Units: mg/dL; Status: F Test: BILIRUBIN, URINE AUTO; Value: NEGATIVE; Range: NEGATIVE; Status: F Test: NITRITE, URINE AUTO; Value: NEGATIVE; Range: NEGATIVE; Status: F Test: LEUKOCYTE ESTERASE, URINE AUTO; Value: 3+; Range: NEGATIVE; Abnormal: Above high normal; Status: F Test: BLOOD, URINE BLOOD; Value: 1+; Range: NEGATIVE; Abnormal: Above high normal; Status: F Test: WBC, URINE AUTO; Value: 71; Range: 0-3; Abnormal: Above high normal; Units: /HPF; Status: F Test: RBC, URINE AUTO; Value: 2; Range: 0-3; Units: /HPF; Status: F Test: BACTERIA, URINE AUTO; Value: 1+; Range: NEGATIVE; Abnormal: Above high normal; Status: F Test: SQUAMOUS EPITHELIAL CELL UR AU; Value: 3; Range: 0-6; Units: /HPF; Status: F Test: MUCUS, URINE; Value: SMALL; Range: NEGATIVE; Status: F Test: HYALINE CAST, URINE AUTO; Value: 0; Range: 0-1; Units: /LPF; Status: F Lab Order: Urine Culture; SPEC'M 06/18/16 11:59 Test: URINE CULTURE; Value: <EXTERNAL COMMENT eCWMed> FULL REPORT IN LAB NOTES (eCW and Medent).; Status: F Test: URINE CULTURE; Value: ORGANISM 1: ESCHERICHIA COLI; Status: F Test: URINE CULTURE; Value: ESCHERICHIA COLI; Status: F Test: URINE CULTURE; Value: COLONY COUNT CFU/ml >100,000; Status: F Test: URINE CULTURE; Value: GRAM NEG SENSI - VITEK 80; Status: F Test: URINE CULTURE; Value: Method: VIT2; Status: F Test: URINE CULTURE; Value: EXTD BRD SPCTRM BETA LACTAMASE -; Status: F Test: URINE CULTURE; Value: TRIMETHOPRIM/SULFAMETHOXAZOLE <=20 S; Status: F Test: URINE CULTURE; Value: AMPICILLIN >=32 R; Status: F Test: URINE CULTURE; Value: GENTAMICIN <=1 S; Status: F Test: URINE CULTURE; Value: NITROFURANTOIN <=16 S; Status: F Test: URINE CULTURE; Value: CEFAZOLIN <=4 S; Status: F Test: URINE CULTURE; Value: LEVOFLOXACIN <=0.12 S; Status: F Test: URINE CULTURE; Value: TOBRAMYCIN <=1 S; Status: F Test: URINE CULTURE; Value: CEFTRIAXONE <=1 S; Status: F Test: URINE CULTURE; Value: CEFTAZIDIME <=1 S; Status: F Test: URINE CULTURE; Value: AMPICILLIN/SULBACTAM >=32 R; Status: F Test: URINE CULTURE; Value: PIPERACILLIN/TAZOBACTAM <=4 S; Status: F Test: URINE CULTURE; Value: AZTREONAM <=1 S; Status: F Test: URINE CULTURE; Value: ERTAPENEM <=0.5 S; Status: F Test: URINE CULTURE; Value: MEROPENEM <=0.25 S; Status: F Test: URINE CULTURE; Value: TIGECYCLINE <=0.5 S; Status: F Test: URINE CULTURE; Value: CEFEPIME <=1 S; Status: F Radiology Order: US OBS SINGEL GEST Test: US OBS SINGEL GEST REASON FOR EXAMINATION: abd pain preg eval for FHR; Obstetric sonography:; ; History: Supervision of at 17 weeks, anatomy and viability.; ; Findings: Scanning through the gravid uterus demonstrates a viable single; intrauterine gestation in a variable lie. motion is observed and; heart rate is recorded at 160 beats per minute. A posterior grade zero placenta; is seen without evidence of previa. Amniotic fluid is subjectively normal.; Closed cervical length is 3.0 cm, visualized trans vaginally. There is corpus; luteum cyst in the maternal left ovary, approximately 1.1 cm in diameter. There; has been appropriate interval growth. No extrauterine abnormality is observed.; ; No anomaly is seen. anatomic survey is incomplete due to ; position and early gestational age. spine, three-vessel cord, abdominal; wall cord insertion, diaphragm, ventricular outflow tract and four-chamber heart,; lungs and face are less than optimally seen as a result. The following; additional anatomic structures are identified and felt to be unremarkable; today: cranium, choroid plexus, cavum, cerebellum and posterior fossa,; left-sided stomach, kidneys and bladder, upper and lower extremities.; ; Biometry chart:; ; BPD 4.1 cm 18 weeks 4 days; ; Head circumference 15.0 cm 18 weeks 0 days; ; Abdominal circumference 12.4 cm 18 weeks 0 days; ; Femur length 2.8 cm 18 weeks 4 days; ; Humeral length 2.6 cm 18 weeks 0 days; ; HC/AC ratio normal 1.21.; ; Cephalic index normal 0.78.; ; Estimated weight 231 grams, 0 pounds 8 ounces, 72nd percentile for 17 weeks; 4 days.; ; Impression:; ; Viable single intrauterine gestation at 18 weeks 2 days by today's composite; sonographic criteria. Expected gestational age estimate based on prior; sonography 17 weeks 4 days. CHUCK by prior sonography is November 22, 2016. ; anatomic survey less than complete.; ; ; Signed by; Nba Guzman MD 06/18/2016 03:05 P; Outcome: 13:15 Ultrasound Study completed. kc3 14:01 Discharge ordered by Provider. br1 14:22 Discharge Assessment: Patient awake, alert and oriented x 3. No cognitive and/or kc3 functional deficits noted. Patient verbalized understanding of disposition instructions. patient administered narcotics - no. The following High Risk Discharge criteria are identified: None. Discharged to home ambulatory. Condition: stable. Discharge instructions given to patient, Instructed on discharge instructions, follow up and referral plans. medication usage, Demonstrated understanding of instructions, medications, Pt was receptive of discharge instructions/ teaching. Prescriptions given X 1. Property :Personal belongings accompany Pt. 14:22 Patient left the ED. kc3 06/20 09:19 culture results reviewed treated appropriately:. [facility] Signatures: Dispatcher [employer] Lonnie Root, RN RN bcj Naila Patel, Reg Reg gb Floresita Aguero, Reg Reg lg Nabeel Dewitt MD MD br1 Isabella, Navin hgl Addie Bowman mm15 Griffin, Sully, NURSING EDUCATOR NURSING EDUCATOR rs6 Antonio De Luna rn1 Chata Kennedy RN RN kc3 Chart Complete MTDD
== END 2016-06-18 14:22 | disposition home or self-care (01) ==
LOC: M ED 10:10
DX: O23.42 Unspecified infection of urinary tract in pregnancy, second trimester (principal); O99.282 Endocrine, nutritional and metabolic diseases complicating pregnancy, second trimester; E28.2 Polycystic ovarian syndrome; Z3A.17 17 weeks gestation of pregnancy; Z87.891 Personal history of nicotine dependence

== ENCOUNTER 2016-11-02 11:00 | Outpatient (CLI) | payer OTHER ==
[~2016-11-02] VITALS: Ht 162.6 cm; Wt 92.0 kg
[2016-11-02 11:10] VITALS: BP 141/94
[2016-11-02] MEDS ORDERED: DICL10TA PO (11:28)
[2016-11-02] MEDS ORDERED: FERR325T3 PO (11:28)
[2016-11-02] MEDS ORDERED: COLA100C3 PO (11:28)
[2016-11-02] MEDS ORDERED: VITACRY3 PO (11:28)
[2016-11-02 11:33] VITALS: BP 148/86
[2016-11-02 11:48] VITALS: BP 123/73
--- NOTE | 2016-11-02 12:10 | IPNPDOC ---
Text Note Date of Service The patient was seen on 11/02/16. NOTE [id number] @ 1200 21 yo presents to L&D Triage ambulatory with spouse @ 37+1 by LMP (CHUCK- [id number]) with c/o LOF since 1900 yesterday. States she has been having to change her panties every time she goes to the bathroom b/c they are wet. Reports fluid as clear and small amounts. Denies DFM, CTXs and VB. Spouse is here with her. S: LOF-small amount of clear fluid without odor. LOF started at 1900 last evening, no pain or CTXs. Had sex last night after she noted the first small amount of clear fluid. Denies SORENSEN, visual changes, n/v and RUQ pain. O: BP- mild range x 2 on arrival(141/94, 148/86), . Once she had been on the monitor and exam was complete her BP was 123/73, states she was very nervous about being in labor. Afebrile. FHR- 145, moderate variability, + accels, no decles CTX- none, resting tone palpated as soft Negative pooling Negative valsalva Negative ferning DEMETRIS- 14.1, vtx SVE- 1/thick/-3, vtx/soft/posterior Pre-e labs sent PCR - 0.17 A: 21 yo @ 37+1 intact, with reactive and reassuring NST. Mild elevation of BPs with labs sent P: Discharge to home with strict return precautions for LOF, DFM, CTX, VB, SORENSEN, n /v, visual changes and RUQ pain. Sent home with 24 hour urine and instructions to drop urine off at [facility] tomorrow and go to [facility] for BP check. VS,Fishbone, I+O VS, Fishbone, I+O Vital Signs Date Time Temp Pulse Resp B/P (MAP) Pulse Ox O2 Delivery O2 Flow Rate FiO2 11/02/16 11:10 97.8 130 20 141/94 (110) Room Air LACEY SETHI CNM Nov 02, 2016 12:10
[2016-11-02 13:14] LABS: ALBUMIN 2.8 GM/DL (3.2-5.2); ALBUMIN/GLOBULIN RATIO 0.74 (1.00-1.93); ALKALINE PHOSPHATASE 103 U/L (45-117); ALT/SGPT 19 U/L (12-78); ANION GAP 7 MEQ/L (8-16); AST/SGOT 11 U/L (15-37); BILIRUBIN,TOTAL 0.2 MG/DL (0.2-1.0); BLOOD UREA NITROGEN 9 MG/DL (7-18); CALCIUM LEVEL 8.7 MG/DL (8.5-10.1); CARBON DIOXIDE LEVEL 25 MEQ/L (21-32); CHLORIDE LEVEL 108 MEQ/L (98-107); CREATININE FOR GFR 0.49 MG/DL (0.55-1.02); GLUCOSE, FASTING 87 MG/DL (70-105); POTASSIUM SERUM 3.8 MEQ/L (3.5-5.1); SODIUM LEVEL 140 MEQ/L (136-145); TOTAL PROTEIN 6.6 GM/DL (6.4-8.2); URIC ACID 3.7 MG/DL (2.6-6.0)
== END 2016-11-02 13:33 | disposition home or self-care (01) ==
LOC: M LDO 11:00
PROVIDERS: ATTEND Midwife
DX: O26.893 Other specified pregnancy related conditions, third trimester (principal); Z3A.37 37 weeks gestation of pregnancy

== ENCOUNTER → 2016-11-03 | Outpatient (REF) | payer OTHER ==
[~2016-11-03] MED LIST: COLA100C5 PO; DIBU10OI TOP; DICL10TA PO; FERR325T3 PO; MOTR200T44 PO; PREN1TAB11 PO; TYLE325T5 PO; VITA100067 PO; VITACRY3 PO
== END ==
LOC: M LAB REF 15:46
PROVIDERS: ATTEND Midwife
DX: Z13.9 Encounter for screening, unspecified (principal)

== ENCOUNTER 2016-12-01 05:45 | Inpatient (IN) | payer OTHER ==
[2016-12-01] VITALS (28 sets, daily range): BP systolic 96–139; BP diastolic 55–83
[~2016-12-01] VITALS: Ht 162.6 cm; Wt 93.0 kg
[~2016-12-01 05:45] MED LIST changes: -DIBU10OI TOP; -MOTR200T44 PO; -PREN1TAB11 PO; -TYLE325T5 PO; -VITA100067 PO
[2016-12-01] MEDS ORDERED: VITA100067 PO (06:52)
[2016-12-01] MEDS ORDERED: LR 1,000 ML IV SCH (06:54)
[2016-12-01] MEDS ORDERED: OXYTOCIN DRIP 30 UNITS in APPROPRIATE DILUENT 1 EA IV SCH ×5 (07:00→20:02)
--- NOTE | 2016-12-01 09:49 | IPNPDOC ---
Text Note Date of Service The patient was seen on 12/01/16. NOTE SBAR from Dr Barr at ~ 0800. 41+2, chart reviewed. I just finished a on a different pt. Wants to be rechecked prior to Pitocin start. NST Cat 2 with some random variables and a few intermittent late decels, irreg ctx's that she is not feeling much. Cx 3-4/90/-1/vtx well applied Favorable cx, will start pitocin soon as long as NST allows per SOP. Sessions VS,Harleen, I+O VS, Harleen, I+O Vital Signs Date Time Temp Pulse Resp B/P (MAP) Pulse Ox O2 Delivery O2 Flow Rate FiO2 12/01/16 08:29 98.2 92 18 133/70 (91) SESSIONS,BUDDY Glover MD Dec 01, 2016 09:49
[2016-12-01 10:35] LABS: MEAN CORPUSCULAR HEMOGLOBIN 30.9 pg (27.0-33.0); MEAN CORPUSCULAR HGB CONC 34.7 g/dl (32.0-36.5); RED CELL DISTRIBUTION WIDTH 13.5 % (11.5-14.5); WHITE BLOOD COUNT 18.1 K/mm3 (4.0-10.0)
[2016-12-01] MEDS ORDERED: PROMETHAZINE INJ 25 MG/ML VIAL (J2550) As Ordered ONE (12:47)
[2016-12-01] MEDS ORDERED: PROMETHAZINE INJ 25 MG/ML VIAL (J2550) IV ONE (13:00)
[2016-12-01] MEDS ORDERED: NALBUPHINE HCL 10 MG/ML AMP (J2300) IV ONE (13:00)
[2016-12-01] MEDS ORDERED: NALBUPHINE HCL 10 MG/ML AMP (J2300) IM ONE (13:00)
[2016-12-01] MEDS ORDERED: FENTANYL 2MCG/ML ROPIVACAINE 0.2% IN 0.9% NACL 200ML IVBAG As Ordered ONE (14:57)
[2016-12-01] MEDS ORDERED: FENTANYL/ROPIVACAINE/NACL BAG 200 ML EPIDURAL SCH (17:00)
[2016-12-01] MEDS ORDERED: NALOXONE INJ 0.4 MG/1 ML VIAL (J2310) IV PRN (17:00)
[2016-12-01] MEDS ORDERED: diphenhydrAMINE INJ 50MG/ML VIAL (J1200) IV PRN (17:00)
[2016-12-01] MEDS ORDERED: REFRIGERATOR IV KEYS XX PRN (17:00)
[2016-12-01] MEDS ORDERED: ONDANSETRON 4MG/2ML VIAL (J2405) IV PRN (17:00)
[2016-12-01] MEDS ORDERED: EPIDURAL COMMENT XX SCH (17:00)
[2016-12-01] MEDS ORDERED: EPIDURAL/PCA KEYS XX PRN (17:00)
[2016-12-01] MEDS ORDERED: LACTATED RINGER'S 1000 ML IV PRN (17:00)
[2016-12-01] MEDS ORDERED: ePHEDrine SULFATE 25 MG/5 ML(5MG/ML) SYRINGE IV PRN (17:00)
--- NOTE | 2016-12-01 17:18 | IPNPDOC ---
Text Note Date of Service The patient was seen on 12/01/16. NOTE Now s/p epidural for ~2 hrs. Pit at 12 mu/min. Pain controlled. NST Cat 2 with mod oz and pos accels, rare variables, reg ctx's Cx C/C/+1 Will allow for passive descent for 1 hr then start pushing 1800. Sessions VS,Harleen, I+O VS, Harleen I+O Laboratory Tests 12/01/16 10:00 Red Blood Count 3.71 L, Mean Corpuscular Volume 89.0, Mean Corpuscular Hemoglobin 30.9, Mean Corpuscular Hemoglobin Concent 34.7, Red Cell Distribution Width 13.5 Vital Signs Date Time Temp Pulse Resp B/P (MAP) Pulse Ox O2 Delivery O2 Flow Rate FiO2 12/01/16 16:26 121 18 12/01/16 16:21 126/64 (84) 12/01/16 16:15 98.6 SESSIONS,BUDDY Glover MD Dec 01, 2016 17:18
[2016-12-01] MEDS ORDERED: IBUPROFEN 800 MG TAB PO PRN (20:15)
[2016-12-01] MEDS ORDERED: DIBUCAINE 1% OINTMENT 30GM TOP PRN (20:15)
[2016-12-01] MEDS ORDERED: METOCLOPRAMIDE INJ 10MG/2ML VIAL (J2765) IV PRN (20:15)
[2016-12-01] MEDS ORDERED: MEASLES,MUMPS,RUBELLA VACCINE INJ (MMR-II) (90707) SC SCH (20:15)
[2016-12-01] MEDS ORDERED: RHOGAM 300 MCG (1500 IU) INJ (J2790) IM SCH (20:15)
--- NOTE | 2016-12-01 20:33 | DNPDOC ---
[facility] Delivery Note Delivery Note DATE OF DELIVERY: Dec 01, 2016 at 08:45 PREDELIVERY DIAGNOSIS: 41 2/7 weeks' gestation and labor. POST DELIVERY DIAGNOSIS: Delivered. PROCEDURE: Spontaneous vaginal delivery UTILIZATION COORDINATOR: Dr. Forbes ANESTHESIA: epidural ESTIMATED BLOOD LOSS: 400 mL. FINDINGS: 8pound 5ounce male , Score 8/9,loose nuchal cord times 1 DELIVERY SUMMARY: Pushed very well and del'd the vtx with grunty pushes, no delay of the vtx or ant/post shoulders. LOT. To abd in good shape with pos cry and good tone. Cord C/C by FOB. Cord blood. Plac intact with slight traction and massage. Pit going wide open, fundus firm. 1st degr per lac and bilat up/down vulvar lacs,all closed with 3-0 and 4-0 vicryl in standard fasion, good cosmesis/hemostasis. Sessions MD FORBES,BUDDY Glover MD Dec 01, 2016 20:33
[2016-12-01] MEDS: ACETAMINOPHEN TAB 650MG DOSE (2X325MG) PO PRN (22:35)
[2016-12-01] MEDS: DOCUSATE SODIUM 100 MG CAP PO SCH (22:41)
[2016-12-02 05:49] VITALS: BP 113/65
--- NOTE | 2016-12-02 07:04 | IPNPDOC ---
Text Note Date of Service The patient was seen on 12/02/16. NOTE PPD1 prog note States feeling well, no complaints. No heavy VB. Pain controlled. Voiding, ambulatory. Bonding well and breast feeding well. VS noted, had a T 100.4 at 2200 last night, AF since CTAB RRR Ut at U-2, firm Ext no CCE a/p: Doing well. d/c will be delayed until TH now due to T last night. Routine PP care. Sessions Harleen DAMON, I+O VSHarleen I+O Laboratory Tests 12/01/16 10:00 Red Blood Count 3.71 L, Mean Corpuscular Volume 89.0, Mean Corpuscular Hemoglobin 30.9, Mean Corpuscular Hemoglobin Concent 34.7, Red Cell Distribution Width 13.5 Vital Signs Date Time Temp Pulse Resp B/P (MAP) Pulse Ox O2 Delivery O2 Flow Rate FiO2 12/02/16 05:49 97.4 126 16 113/65 (81) 97 Room Air I&O- Last 24 Hours up to 6 AM 12/02/16 06:00 Output Total 400 ml Balance -400 ml SESSIONS,BUDDY Glover MD Dec 02, 2016 07:04
[2016-12-02] MEDS: DOCUSATE SODIUM 100 MG CAP PO SCH ×2 (08:00→21:32)
[2016-12-02] MEDS: PRENATAL VITAMINS CHEWABLE TABLET PO SCH (08:00)
[2016-12-02] MEDS: ACETAMINOPHEN TAB 650MG DOSE (2X325MG) PO PRN ×2 (14:28→21:32)
[2016-12-02 18:45] VITALS: BP 122/67
[2016-12-03 06:00] VITALS: BP 104/51
[2016-12-03] MEDS ORDERED: TYLE325T5 PO (07:53)
[2016-12-03] MEDS ORDERED: MOTR200T44 PO (07:53)
[2016-12-03] MEDS ORDERED: PREN1TAB11 PO (07:53)
[2016-12-03] MEDS ORDERED: DIBU10OI TOP (07:53)
[2016-12-03] MEDS: DOCUSATE SODIUM 100 MG CAP PO SCH (08:54)
[2016-12-03] MEDS: PRENATAL VITAMINS CHEWABLE TABLET PO SCH (08:54)
--- NOTE | 2016-12-09 13:47 | IPN ---
DATE: 12/01/2016 The patient requested circumcision of her male . After discussing risks and benefits of circumcision, the medical and nonmedical indications, penile block and aftercare, expressed understanding of penile block and aftercare, signed and witnessed consent form. We await the clearance by the distribution warehouse manager.
== END 2016-12-03 10:41 | disposition home or self-care (01) | DRG 775 ==
LOC: M LDO 05:45 → M LDI 08:45 → M OBS 21:54
PROVIDERS: ADMIT Student in an Organized Health Care Education/Training Program; ATTEND Student in an Organized Health Care Education/Training Program
PROC: 10E0XZZ Delivery of Products of Conception, External Approach (ICD-10-PCS; principal; 2016-12-01)
PROC: 0HQ9XZZ Repair Perineum Skin, External Approach (ICD-10-PCS; 2016-12-01)
DX: O48.0 Post-term pregnancy (principal); Z37.0 Single live birth; Z3A.41 41 weeks gestation of pregnancy; D64.9 Anemia, unspecified; O21.9 Vomiting of pregnancy, unspecified; Z79.899 Other long term (current) drug therapy; O69.82X0 Labor and delivery complicated by other cord entanglement, without compression, not applicable or unspecified; O70.0 First degree perineal laceration during delivery; O99.02 Anemia complicating childbirth